=== PATIENT | male | born 1965 | race African-American/Black ===

== ENCOUNTER → 2016-12-24 | Day surgery (SDC) | payer OTHER ==
[~2016-12-24] VITALS: Ht 99.1 cm; Wt 106.9 kg
[~2016-12-24] MED LIST: ASPI81CH CHEW; ATROPINE SULFATE 1% OPHT SOLN 2 ML BTL ONE; ATROPINE SULFATE 1% OPHT SOLN 5 ML BTL EACH EYE SCH; BALANCED SALT SOLN OPHT IRRIG 15 ML BTL ONE; CHLORHEXIDINE GLUCONATE 2 % 1 PACK (2 CLOTHS) TOPICAL PRN; CIAL5TAB PO; CLON0.1T PO; CYCL5TAB PO; CYCLOPENTOLATE HCL 1% OPHT SOLN 2 ML BTL EACH EYE SCH; DEXAMETHASONE SOD PHOS 4 MG/ML VIAL ONE; DEXTROSE 50% IN WATER 50 ML SYRINGE ONE; DILT-64 PO; DO NOT ADM ANY ANTICOAGULANT DRUGS PRN; EPINEPHrine HCL (1:1000) 1 MG/ML VIAL ONE; FAMOTIDINE 20 MG/2 ML VIAL ONE; GABA600T PO; GLIM1TAB PO; GLIP5TAB8 PO; HYDR-3799 PO; INSU100V2 SQ; INSU1INJ5 SQ; INSULIN HUMAN REGULAR 1,000 UNITS/10 ML VIAL SQ PRN; LACTATED RINGER'S 1000 ML IV PRN; METO50TA PO; METOPROLOL TARTRATE 25 MG TAB PO PRN; MIDAZOLAM HCL 2 MG/2 ML VIAL ONE; NOVOINJ3 SQ; ONDANSETRON HCL 4 MG/2 ML VIAL IV PUSH ONE; PHENYLEPH/NS 1000 MCG/10 ML SYR IV ONE; PHENYLEPHRINE HCL 2.5% OPTH SOLN 2 ML BTL EACH EYE SCH; PLAV75TA29 PO; POVIDONE IODINE 5% (ANTISEPSIS KIT) 4 APPLICATIONS EACH NARE PRN; PROPOFOL 200 MG/20 ML AMP IV ONE; SODIUM CHLORID 0.9% 500 ML INJ 500 ML IV ONE; SODIUM CHLORID 0.9% 500 ML IV PRN; STERILE WATER FOR INJ 20 ML VIAL ONE; TOBRAMYCIN/DEXAMETHASONE OPTH OINT 3.5 GM TUBE ONE; TRAD5TAB PO; TRIAMCINOLONE ACETONIDE/PF 40 MG/ML OPTH VIAL ONE; TROPICAMIDE 1% OPHT SOLN 15 ML BTL EACH EYE SCH; ceFAZolin INJ 1,000 MG VIAL ONE; fentaNYL CITRATE 250 MCG/5 ML AMP ONE; oxyCODONE/ACETAMINOPHEN 5 MG/325 MG TAB ONE
[2016-12-24 09:30] VITALS: BP 176/100; PULSE 93; RESP 18; TEMP 98.5; O2SAT 96
[2016-12-24 09:41] LABS: AUTOMATED NEUTROPHIL # 4.1 TH/MM3 (1.8-7.7); BASOPHIL # 0.1 TH/MM3 (0-0.2); BASOPHIL % 1.3 % (0.0-2.0); EOSINOPHIL # 0.4 TH/MM3 (0-0.4); HEMATOCRIT 37.5 % (39.0-51.0); HEMO FLAGS DIFF FINAL; LYMPH % 30.7 % (9.0-44.0); LYMPHOCYTE # 2.4 TH/MM3 (1.0-4.8); MEAN CELL VOLUME 86.2 FL (80.0-100.0); MEAN CORPUSCULAR HEMOGLOBIN 27.7 PG (27.0-34.0); MEAN CORPUSCULAR HGB CONC 32.1 % (32.0-36.0); MONO % 10.9 % (0.0-8.0); NEUT % 52.1 % (16.0-70.0); PLATELET COUNT 232 TH/MM3 (150-450); RED BLOOD COUNT 4.35 MIL/MM3 (4.50-5.90); RED CELL DISTRIBUTION WIDTH 14.8 % (11.6-17.2); WHITE BLOOD COUNT 7.9 TH/MM3 (4.0-11.0)
[2016-12-24] MEDS: PHENYLEPHRINE HCL 2.5% OPTH SOLN 2 ML BTL RIGHT EYE SCH ×2 (10:25→10:40)
[2016-12-24] MEDS: CYCLOPENTOLATE HCL 1% OPHT SOLN 2 ML BTL RIGHT EYE SCH ×2 (10:25→10:40)
[2016-12-24] MEDS: TROPICAMIDE 1% OPHT SOLN 15 ML BTL RIGHT EYE SCH ×2 (10:25→10:40)
[2016-12-24] MEDS: ATROPINE SULFATE 1% OPHT SOLN 5 ML BTL RIGHT EYE SCH ×2 (10:25→10:40)
[2016-12-24 15:15] VITALS: BP 165/100; PULSE 89; RESP 18; TEMP 97.8; O2SAT 100
--- NOTE | 2016-12-24 17:08 | MP ---
cc: ANNA MCFARLANE M.D. DATE OF SURGERY: 12/24/2016. PREOPERATIVE DIAGNOSIS: 1. Proliferative diabetic retinopathy both eyes. 2. Vitreous hemorrhage, right eye. POSTOPERATIVE DIAGNOSIS: 1. Proliferative diabetic retinopathy both eyes. 2. Vitreous hemorrhage, right eye. OPERATIVE PROCEDURE PERFORMED: A trans pars plana vitrectomy with Endo and indirect laser panretinal photocoagulation and air-fluid exchange, right eye. SURGEON: Anna Mcfarlane MD. INDICATIONS FOR THE PROCEDURE: Mr. Betts is a 51-year-old gentleman with a history of diabetes and severe proliferative diabetic retinopathy who presented with a non-clearing vitreous hemorrhage in his right eye and visual acuity of counting fingers at 5 feet. His evaluation including fluorescein angiography revealed bilateral proliferative diabetic retinopathy. He wished to proceed electively with a vitrectomy and laser panretinal photocoagulation in his right eye to hopefully improve his visual functioning. He also decided that while under anesthesia that he would prefer the left eye to be treated with the indirect laser PRP. The risks and benefits of both procedures were discussed with the patient. Informed consent was obtained. No guarantee was made as to visual outcome. DESCRIPTION OF THE PROCEDURE IN DETAIL: He was brought to [facility] Operating Room #1 and placed on the operating table. Appropriate anesthesia monitoring devices were applied and he was placed under general anesthesia using a laryngeal mask. The right eye was identified as the surgical eye and prepped and draped in the usual sterile fashion. A lid speculum was placed. The microscope was brought around and adjusted. A time-out was called with the staff agreeing to the surgical site and planned procedures. Using the Ashok 23-gauge vitrectomy system, the trocar cannulas were placed 4 mm posterior to the limbus after first displacing the conjunctiva and with a beveled entrance. The first one was placed at approximately 9 o'clock and verified to be in the posterior chamber. An infusion cannula was affixed to it and turned on. Two additional trocar cannulas were placed at approximately 10 and 2 o'clock using the flat lens. The eye was entered with the Endo tree loader meat light pipe and vitrectomy cutter and a core vitrectomy was carried out. Using the BIOM wide-angle viewing system, the more peripheral vitreous was removed. There were epicenters along this just outside the superotemporal arcade which were amputated. Once the vitrectomy had been completed and the excess preretinal hemorrhage vacuumed off the retinal surface, endolaser photocoagulation was performed using a power of 200 milliwatts 0.1-second exposure around the posterior pole. The laser indirect was then used to finish the PRP in the periphery using a power of 200-300 milliwatts and 0.1-second exposure. The total scatter treatment to the right eye was 1374 treats. An air-fluid exchange was performed after first verifying there were no retinal breaks. The cannulas were then removed one by one with tamponade of the site with a cotton swab and diathermy to the overlying conjunctival wound leaving the eye with good pressure and no visible air leaks. The patient was then undraped. The right eye was patched and shielded with TobraDex ointment after a drop of atropine was placed on the cornea. Once the right eye was bandaged and secured, the attention was drawn to the left eye were a lid speculum was placed. Laser scatter with a power of 200 to 300 milliwatts and 0.1-second exposure was performed around the mid periphery and periphery for a total of 1215 laser treats. The patient was then allowed to awaken in the room and had the laryngeal mask removed and was returned recovery in good condition laying on his left side. He will be asked to alternate between left side down and face down over the next 24 hours. MD NAHUM Michaels/BILLY /1:49 PM /5:01 PM
== END | disposition home or self-care (01) ==
LOC: HSDC 08:36
PROVIDERS: ATTEND Ophthalmology
DX: E11.3593 Type 2 diabetes mellitus with proliferative diabetic retinopathy without macular edema, bilateral (principal); H43.11 Vitreous hemorrhage, right eye; Z87.891 Personal history of nicotine dependence
CPT/HCPCS: 00145; 67025; 67040; 82948; 85025; J0171; J0690; J1100; J2250; J2370; J2405; J3010; J7040; J3300